=== PATIENT | female | born 1975 | race African-American/Black ===

== ENCOUNTER 2016-11-26 19:46 | Inpatient (IN) ==
[2016-11-26] MEDS ORDERED: ACETAMINOPHEN 500 MG TABLET PO STA (20:11)
[2016-11-26] MEDS ORDERED: SODIUM CHLORIDE 0.9% 500 ML IV STA (20:11)
[2016-11-26] MEDS ORDERED: CEFTAROLINE 600 MG in SODIUM CHLORIDE 0.9% 100 ML IV STA (20:11)
--- NOTE | 2016-11-26 20:17 | Emergency Department Note ---
Alonso Leon Brittany, am scribing for, and in the presence of, oJse Nichols MD 20:15. Simone Leon Charles R, MD, personally performed the services described in this documentation, ascribed by Melida Gupta in my presence, and it is both accurate and complete . Arrival - Arrival Chief Complaint: Extremity Problem Stated Complaint: sick ED Nursing Triage Note: pt to triage c/o left leg swelling , and pain. left leg swollen, painful to touch. reddness / warmth noted fron ankle to knee. pt was seen in june. Mode of Arrival: Ambulatory Limitations: No Limitations Source: Patient, RN Notes Reviewed - History of Present Illness HPI Narrative: Ms. Garcia is a 41 y/o black female presenting to the ED with c/o erythema, swelling, and pain to the LLE with an onset of 6 months. Patient reports that since June she has had intermittent episodes of erythema, swelling, and pain to the LLE. She notes that after an episode there will be a period of weeks before she has another episode. She reports that with each episode she will have a fever each day until the episode subsides. Patient was seen in June 2016 for this and was diagnosed with Cellulitis. On that same visit she was evaluated for possible DVT and was found to have none. She denies any history of other medical problems. She reports an episode of nausea/vomiting today and states that she is unsure if she may be . Patient has not had a menstrual period this month. Patient has no other complaint/pain. Onset (ago): month(s) Consistency: intermittent Severity: moderate Severity scale (1-10): 6 Quality: aching Allergies/Adverse Reactions: Allergies Allergy/AdvReac Type Severity Reaction Status Date / Time No Known Allergies Allergy Verified 11/26/16 19:53 Home Medications: Home Medications Medication Instructions Recorded Confirmed Type No Known Home Medications [No 11/26/16 11/26/16 History Known Home Medications] Review of System - Review of System 12 point system: reviewed and no additional remarkable complaints except as stated - Review of System Constitutional: Present: fever Eyes: Absent: vision change Head/Ears/Nose/Throat: Absent: nasal drainage, sore throat Respiratory: Absent: respiratory distress Cardiovascular: Absent: chest pain, palpitations Gastrointestinal: Present: nausea, vomiting. Absent: abdominal pain Genitourinary female: Absent: dysuria, frequency, urgency Musculoskeletal: Present: leg pain. Absent: arm pain, back pain, neck pain Skin: Present: as per HPI. Absent: rash Neurological: Absent: headache Psychiatric: Absent: anxiety, depression Hematological/Lymphatic: Absent: easy bleeding, easy bruising Medical,Surgical,& Family Hx - Surgical History Reproductive Surgeries: Surgical HX of;: Section (1994) - Family History Family History: Reports;: Family Diabetes, Family Heart Disease - Social History Smoking Status: Current every day smoker Frequency of Alcohol Use: None Type of Drug Use: None Exam Vital Signs: Vital Signs Temperature 102.1 F H 11/26/16 19:52 Pulse Rate 123 H 11/26/16 19:52 Respiratory Rate 20 11/26/16 19:52 Blood Pressure 142/80 11/26/16 19:52 O2 Sat by Pulse Oximetry 99 11/26/16 19:47 - General General appearance: alert, in no apparent distress - Head Head exam: Present: atraumatic, normocephalic, normal inspection - Eye Eye exam: Present: normal appearance, PERRL, EOMI - ENT ENT exam: Present: normal exam, normal oropharynx - Neck Neck exam: Present: normal inspection, full ROM, trachea midline - Chest Chest inspection: Present: normal inspection, symmetric chest wall rise - Respiratory Respiratory exam: Present: normal lung sounds bilaterally - Cardiovascular Cardiovascular exam: Present: normal rhythm, tachycardia, normal heart sounds. Absent: regular rate - Abdominal Exam Abdominal exam: Present: soft, normal bowel sounds - Extremities Exam Extremities exam: Present: full ROM, tenderness (tender to palpation posterior left thigh). Absent: normal inspection (beamingly erythematous LLE from the knee to then ankle with swelling hot to touch, good distal pulses) - Back Exam Back exam: Present: normal inspection - Neurological Exam Neurological exam: Present: alert, oriented X3, CN II-XII intact. Absent: motor sensory deficit - Psychiatric Psychiatric exam: Present: normal affect, normal mood - Skin Skin exam: Present: warm, dry, other (beamingly erythematous LLE from the knee to then ankle with swelling, hot to touch) Course - Consultations Consultation #1: Hospitalist will admit patient Time: 20:53 Results - Labs CBC & BMP: 11/26/16 19:58 11/26/16 19:58 Lab Results: I have reviewed the patients labs Labs: Laboratory Tests 11/26/16 19:58 WBC 24.4 H RBC 4.14 Hgb 11.0 L Hct 34.1 L MCV 82.4 L MCH 27 MCHC 32.3 RDW 16.3 Plt Count 350 MPV 10.4 Neut % (Auto) 89.5 H Lymph % (Auto) 3.2 L [place] % (Auto) 6.2 Eos % (Auto) 0.0 Baso % (Auto) 0.2 Neut # (Auto) 21.8 H Lymph # (Auto) 0.8 L [place] # (Auto) 1.5 H Eos # (Auto) 0.0 Baso # (Auto) 0.0 Immature Gran % 0.9 Nucleated RBC % 0.0 Immature Gran # 0.22 Nucleated RBCs # 0.00 Laboratory Tests 11/26/16 19:58 INR 1.0 PT Patient/Control Mix 10.7 - Diagnostic Findings Procedure: Chest x-ray: image reviewed by me (Negative), Ultrasound: image reviewed by me (No DVT left lower extremity) Critical Care Time Critical Care Time: Yes Total Critical Care Time: 60 Disposition Clinical Impression: Cellulitis, Lower extremity edema, Fever, Sepsis affecting skin, Leukocytosis Case discussed with: patient, patient's family Disposition: Still a Patient Condition: Guarded Time of Disposition: 20:59 Sepsis - Sepsis Classification of Sepsis: Sepsis - Physical Exam Respiratory exam: clear to auscultation bilaterally Cardiovascular exam: tachycardia
[2016-11-26 20:21] LABS: Basophils % 0.2 % (0.0-0.8); Hematocrit 34.1 VOL% (35.7-47.0); Immature Granulocytes % 0.9 %; Immature Granulocytes Absolute 0.22 #; Lymphocytes # 0.8 10*3/uL (1.4-4.0); Lymphocytes % 3.2 % (21.3-54.2); Mean Corpuscular HGB Conc 32.3 GM/DL (32-36); Mean Corpuscular Hemoglobin 27 PG (27-34); Mean Corpuscular Volume 82.4 FL (87-102); Mean Platelet Volume 10.4 FL (9.6-12.0); Monocytes # 1.5 10*3/uL (0.11-0.8); Monocytes % 6.2 % (1.7-12.7); Neutrophils # 21.8 10*3/uL (1.4-7.4); Neutrophils % 89.5 % (38.7-73.9); Platelet Count 350 T/CUMM (130-400); Red Blood Count 4.14 MC/CUMM (3.8-5.5); Red Cell Distribution Width 16.3 % (9.3-17.3); White Blood Count 24.4 T/CUMM (4-12)
[2016-11-26] MEDS ORDERED: ACETAMINOPHEN 500 MG TABLET ONE (20:24)
[2016-11-26] MEDS ORDERED: CEFTAROLINE 600 MG VIAL IV ONE (20:24)
[2016-11-26 20:30] LABS: PT Patient Result 10.7 SECS
[2016-11-26] MEDS ORDERED: SODIUM CHLORIDE 0.9% 1,000 ML IV STA (20:43)
[2016-11-26 20:46] LABS: Albumin 3.5 G/DL (3.4-5.0); Bilirubin,Total 0.5 MG/DL (0.2-1.0); Calcium 8.9 MG/DL (8.5-10.1); Osmolality,Calculated 272.8 MOS/KG (273-304); Potassium 4.2 MMOL/L (3.5-5.1); Total Protein 7.7 G/DL (6.4-8.3)
[2016-11-26 20:47] LABS: Band Neutrophils 3 % (0-10); Lymphocytes 2 % (20-55); Platelet Estimate Normal; Segmented Neutrophils 88 % (50-85); Total Cells Counted 100
[2016-11-26 20:56] LABS: Apearance,Urine CLEAR (Clear); Bilirubin,Urine Negative (Negative); Blood, Urine Negative (Negative); Glucose,Urine (UA) Negative (Negative); Ketones,Urine Negative (Negative); Mucus,Urine Occasional /LPF (Occasional); Nitrite,Urine Negative (Negative); Protein,Urine Negative; RBC,Urine <1 /HPF (0-4); Renal Epithelial Cells,Urine Occasional /HPF (<1); Squamous Epithelial Cell,Urine Occasional /HPF (0-10); Urine Color Yellow (Yellow); Urine Specific Gravity 1.016 (1.001-1.035); Urine Urobilinogen < 2.0 EU/DL (0.2-1.0); WBC,Urine 1 /HPF (0-6)
[2016-11-26] MEDS ORDERED: SODIUM CHLORIDE 0.9% 3,150 ML IV ONE (20:56)
--- NOTE | 2016-11-26 20:59 | XRay Report ---
Exam: XR chest 1V portable Indication: Shortness of breath fever Comparison study: None Findings: The heart, mediastinum, and bony structures are within normal limits. There is no focal consolidation, pneumothorax or pleural effusion identified. Impression: No acute cardiopulmonary process. PROCEDURE INTERPRETED AT [facility] DEPARTMENT OF RADIOLOGY Final Report Signed by: Luis Felipe Perez
--- NOTE | 2016-11-26 21:00 | Ultrasound Report ---
Indication: Swelling, fever Duplex scan of the left lower extremity veins Technique: Duplex scan of the left lower extremity veins using B-mode/grayscale imaging and Doppler spectral analysis and color flow Findings: Major venous structures of the left lower extremity demonstrate a normal course and caliber. There is no evidence of deep vein thrombosis. No abnormal intrinsic echogenic lesions are demonstrated in the scanned blood vessels. Veins demonstrate good compressibility with normal color flow study and spectral analysis. Impression: Unremarkable duplex imaging of the left lower extremity veins. No evidence of DVT PROCEDURE INTERPRETED AT [facility] DEPARTMENT OF RADIOLOGY Final Report Signed by: Luis Felipe Perez
[2016-11-26 21:19] LABS: PT Patient Result 10.7 SECS; Partial Thromboplastin Time 28.7 SECS (0-40)
--- NOTE | 2016-11-26 21:23 | Hospitalist History & Physical ---
<Jose Nichols Teresa - Last Filed: 11/26/16 21:28> History of Present Illness History of present illness: Ms. Garcia is a 41 year old female Home Medications Medication Instructions Recorded Confirmed Type No Known Home Medications [No 11/26/16 11/26/16 History Known Home Medications] Allergies Allergy/AdvReac Type Severity Reaction Status Date / Time No Known Allergies Allergy Verified 11/26/16 19:53 Exam - Constitutional Vitals: Period Temp Pulse Resp BP Sys/Portillo Pulse Ox Last 24 Hr 102.1 F-102.1 F 123-123 20-20 142-142/80-80 99 Results - Labs CBC & BMP: 11/26/16 19:58 11/26/16 19:58 <Tay Hernandez - Last Filed: 11/27/16 04:49> Assessment and Plan - Time spent with patient Time spent discussing smoking cessation with patient: 3 to 10 minutes (1) Sepsis due to cellulitis Status: Acute Current Visit: Yes (2) Intractable nausea and vomiting Status: Acute Assessment and plan: Plan: Admit for IV antibiotics, IV fluids, obtain blood cultures. Supportive care for pain, nausea. Current Visit: Yes History of Present Illness Chief complaint: Left lower extremity pain and swelling, fever History of present illness: Ms. Garcia is a 41 year old female who is here with left lower extremity pain and swelling along with fever up to 102 has been a problem over the last 2-3 days. She states she has had has occurred over problems with cellulitis of left lower extremity over the last 6 months. Her last flareup over the last 2 weeks. She took left over clindamycin from June without improvement and now remains febrile, along with nausea and vomiting. She describes her pain as achy and sometimes sharp, 8 out of 10 at worst. Exacerbated by ambulation, relieved with rest. Her symptoms are constant and severe. She has tachycardic , febrile, and tachypneic will be admitted for sepsis due to cellulitis of the left lower extremity. Dopplers in the ER were negative for DVT. Medical,Surgical,& Family Hx - Medical History Cardio: No history of: Hypertension Endocrine: No history of: Diabetes Mellitus (NIDDM) Respiratory: No history of: COPD Other: History of: Skin Problems (Recurrent left lower extremity cellulitis) - Surgical History Reproductive Surgeries: Surgical HX of;: Section (1994) - Family History Family History: Reports;: Family Diabetes, Family Heart Disease - Social History Smoking Status: Current every day smoker Have you smoked in the last 12 months: Yes Time spent discussing smoking cessation with patient: 3 to 10 minutes Frequency of Alcohol Use: None Type of Drug Use: None Marital Status: Unknown Functional capacity: independent ambulation Review of systems: A 12 point review of systems is negative except as specified in the HPI Exam - Constitutional Vitals: Period Temp Pulse Resp BP Sys/Portillo Pulse Ox Last 24 Hr 102.1 F-102.1 F 123-123 20-20 142-142/80-80 99 Exam: EXAM: CONSTITUTIONAL: Ill-appearing, NAD HEENT: NC, AT, OP benign, LUIS, EOMI CV: Tachycardic, regular no m/g/r RESP: clear B/L, no w/r/r GI: abd soft, NT, ND, +bowel sounds INTEGUMENTARY: no lesions or rash EXTREMITIES: 1+ pitting edema of the left lower extremity, erythema, warmth, pain with palpation of the distal left extremity, no open sores or wounds NEURO: no focal deficits PSYCH: unremarkable, A/O x3 Results - Labs CBC & BMP: 11/27/16 01:47 11/27/16 01:47 Lab Results: I have reviewed the past 24 hour labs - Diagnostic Findings Procedure: Chest x-ray: image reviewed by me, report reviewed by me, Ultrasound : image reviewed by me, report reviewed by me
[2016-11-26 21:26] LABS: Sedimentation Rate-Westergren 84 MM/HR (0-20)
[2016-11-26] MEDS ORDERED: BISACODYL 5 MG TABLET PO PRN (21:31)
[2016-11-26] MEDS ORDERED: ONDANSETRON 4 MG/2 ML VIAL IV PRN (21:31)
[2016-11-26] MEDS ORDERED: MORPHINE 2 MG/1 ML SYRINGE IV PRN (21:31)
[2016-11-26] MEDS ORDERED: traZODone 50 MG TABLET PO PRN (21:31)
[2016-11-26] MEDS ORDERED: ACETAMINOPHEN 325 MG TABLET PO PRN (21:31)
[2016-11-26] MEDS: SODIUM CHLORIDE 0.9% 1,000 ML IV SCH (23:04)
[2016-11-26] MEDS: ENOXAPARIN 40 MG/0.4 ML SYRINGE SUBCUT SCH (23:04)
[2016-11-26] MEDS: CLINDAMYCIN INJ 600 MG in PREMIX 1 EACH IV SCH (23:04)
[2016-11-27 02:26] LABS: Basophils # 0.1 10*3/uL (0.0-0.2); Basophils % 0.2 % (0.0-0.8); Hematocrit 30.8 VOL% (35.7-47.0); Immature Granulocytes % 1.2 %; Immature Granulocytes Absolute 0.36 #; Lymphocytes # 1.6 10*3/uL (1.4-4.0); Lymphocytes % 5.1 % (21.3-54.2); Mean Corpuscular HGB Conc 32.5 GM/DL (32-36); Mean Corpuscular Hemoglobin 27 PG (27-34); Mean Corpuscular Volume 82.4 FL (87-102); Mean Platelet Volume 10.3 FL (9.6-12.0); Monocytes # 1.4 10*3/uL (0.11-0.8); Monocytes % 4.6 % (1.7-12.7); Neutrophils # 27.7 10*3/uL (1.4-7.4); Neutrophils % 88.9 % (38.7-73.9); Platelet Count 314 T/CUMM (130-400); Red Blood Count 3.74 MC/CUMM (3.8-5.5); Red Cell Distribution Width 16.4 % (9.3-17.3); White Blood Count 31.2 T/CUMM (4-12)
[2016-11-27 03:02] LABS: Calcium 8.1 MG/DL (8.5-10.1); Osmolality,Calculated 279.3 MOS/KG (273-304); Potassium 3.6 MMOL/L (3.5-5.1)
[2016-11-27] MEDS: CLINDAMYCIN INJ 600 MG in PREMIX 1 EACH IV SCH ×3 (06:24→21:37)
[2016-11-27] MEDS: SODIUM CHLORIDE 0.9% 1,000 ML IV SCH (06:27)
[2016-11-27] MEDS: PANTOPRAZOLE 40 MG TABLET PO SCH (08:09)
[2016-11-27] MEDS: CEFTAROLINE 600 MG in SODIUM CHLORIDE 0.9% 100 ML IV SCH ×2 (08:09→20:35)
--- NOTE | 2016-11-27 09:04 | Hospitalist Progress Note ---
Assessment and Plan - Time spent with patient Time spent with patient: Greater than 30 minutes (1) Cellulitis Status: Acute Current Visit: Yes (2) Lower extremity edema Status: Acute Current Visit: Yes (3) Leukocytosis Status: Acute Current Visit: Yes (4) Sepsis due to cellulitis Status: Acute Assessment and plan: She is on appropriate antibiotics for her condition, will continue the same. Follow blood cultures. Keep lower extremity elevated while at rest. Pain controlled on [place] DVT prophylaxis Current Visit: Yes Hospitalist: Subjective Interval history: Young man admitted overnight for left lower extremity cellulitis and secondary sepsis. Leukocytosis worsening, however she has no fever today. Still complains of achy pain in the left lower extremity. Lower extremity Doppler is negative for DVT She is on ceftaroline which is appropriate for treatment of her cellulitis, will monitor progress. Exam - Constitutional Vitals: Period Temp Pulse Resp BP Sys/Portillo Pulse Ox Last 24 Hr 98.7 F-102.1 F 99-123 16-24 124-142/66-89 96-99 Exam: CONSTITUTIONAL: Ill-appearing, NAD HEENT: NC, AT, OP benign, LUIS, EOMI CV: Normal sinus rhythm, no longer tachycardic. Heart sounds 1 and 2 heard RESP: Good air entry bilaterally, no crackles or wheezes. GI: abd soft, NT, ND, +bowel sounds EXTREMITIES:edema of the left lower extremity, erythema, warmth, pain with palpation of the distal left extremity, no open sores or wounds NEURO: no focal deficits Results - Labs CBC & BMP: 11/27/16 01:47 11/27/16 01:47 Lab Results: I have reviewed the past 24 hour labs Quality Measures - Stroke Symptom Onset Unknown: No
[2016-11-27] MEDS: ENOXAPARIN 40 MG/0.4 ML SYRINGE SUBCUT SCH (21:51)
[2016-11-28] MEDS: CLINDAMYCIN INJ 600 MG in PREMIX 1 EACH IV SCH ×3 (05:35→21:28)
[2016-11-28] MEDS: CEFTAROLINE 600 MG in SODIUM CHLORIDE 0.9% 100 ML IV SCH ×2 (08:01→20:25)
[2016-11-28] MEDS: PANTOPRAZOLE 40 MG TABLET PO SCH (08:01)
--- NOTE | 2016-11-28 09:41 | Hospitalist Progress Note ---
Assessment and Plan - Time spent with patient Time spent with patient: Greater than 30 minutes (1) Cellulitis Status: Acute Current Visit: Yes (2) Lower extremity edema Status: Acute Current Visit: Yes (3) Leukocytosis Status: Acute Current Visit: Yes (4) Sepsis due to cellulitis Status: Acute Assessment and plan: She is on appropriate antibiotics for her condition, will continue the same. Follow final blood cultures. Keep lower extremity elevated while at rest. Advance her diet Pain controlled on [place] DVT prophylaxis Based on clinical improvement, she may be ready for discharge on oral antibiotics tomorrow. Current Visit: Yes Hospitalist: Subjective Interval history: Admitted for left lower extremity cellulitis, pain and swelling have continued to improve. No more fever. Preliminary blood cultures are negative. Exam - Constitutional Vitals: Period Temp Pulse Resp BP Sys/Portillo Pulse Ox Last 24 Hr 98.4 F-99.9 F 84-97 20-24 125-143/68-78 96-100 Exam: CONSTITUTIONAL: Ill-appearing, NAD HEENT: NC, AT, OP benign, LUIS, EOMI CV: Normal sinus rhythm, no longer tachycardic. Heart sounds 1 and 2 heard RESP: Good air entry bilaterally, no crackles or wheezes. GI: abd soft, NT, ND, +bowel sounds EXTREMITIES:edema of the left lower extremity, erythema, warmth, pain with palpation of the distal left extremity, no open sores or wounds NEURO: no focal deficits Results - Labs CBC & BMP: 11/27/16 01:47 11/27/16 01:47 Lab Results: I have reviewed the past 24 hour labs Quality Measures - Stroke Symptom Onset Unknown: No
[2016-11-28] MEDS: ENOXAPARIN 40 MG/0.4 ML SYRINGE SUBCUT SCH (21:28)
[2016-11-29] MEDS: CLINDAMYCIN INJ 600 MG in PREMIX 1 EACH IV SCH ×2 (05:55→13:22)
--- NOTE | 2016-11-29 09:24 | Discharge Summary ---
<Oralia Graciada - Last Filed: 11/29/16 09:17> Hospital Course - Hospital Course Hospital Course: This is a 41-year-old female that presented to the ED at [facility] on November 27, 2016 for the evaluation of left lower extremity pain and edema. The patient has a history of recurrent left lower extremity cellulitis and a surgical history of section in 1994. At the time of presentation, the patient reported an onset of the above symptoms 2-3 days prior to presentation to the ED. She reported that she has had issues with chronic cellulitis affecting the left extremity for the last 6 months. She reported being febrile with temperatures as high as 102. She was last seen for this problem in June of this year and was given clindamycin, however her symptoms did not improve. In addition, the patient was also noted to be tachycardic and be experiencing nausea and vomiting. Labs were obtained at the time of presentation, which reported leukocytosis with a white blood cell count noted at 24.4, hemoglobin at 11.0, hematocrit at 34.1, and platelet count at 350. Mr. panels were obtained which were essentially benign. ESR was elevated at 84. Lactate dehydrogenase was noted at 276, C-reactive protein at 1.54, and lactic acid at 2.3. Urinalysis was obtained which was essentially benign. Chest x-ray was obtained which was negative for any acute cardiopulmonary processes. Ultrasound venous Doppler scan of the left lower extremity was negative for the presence of deep vein thrombosis. The patient was subsequently admitted to the hospitalist services for continuation of care. The sepsis bundle was initiated at that time. Empiric antibiotics, intravenous fluid replacement, and VTE prophylaxis was started. The patient's condition has improved. She has not experienced any significant overnight events. Today, we feel that the patient is appropriate for discharge to follow-up with her primary care physician as directed. The patient will continue antibiotic therapy at the time of discharge. Spoke in great detail with patient regarding the importance of completing the entire antibiotic regimen. The patient acknowledges an understanding of the importance to prevent the reoccurrence of this condition. Discharge Plan - Discharge Data Disposition: Disch To Home/Self Care - Discharge Medications New Pantoprazole Tab [Protonix Tab] 40 mg PO DAILY #30 tablet Clindamycin Cap [Cleocin Cap] 300 mg PO Q6HR #40 capsule Levofloxacin Tab [Levaquin Tab] 500 mg PO DAILY #10 tablet - Follow Up or Referral - Forms/Instructions Exam - Constitutional Vitals: Period Temp Pulse Resp BP Sys/Portillo Pulse Ox Last 24 Hr 97.2 F-98.9 F 72-84 16-22 127-147/54-93 97-100 Discharge Results Procedures and tests throughout hospitalization: Pending Orders 11/26/16 20:40 Blood Culture Stat Urine Culture Stat 11/26/16 20:56 Urinalysis Stat 11/26/16 23:07 Blood Culture Stat Labs on day of discharge: Preliminary micro results at discharge 11/26/16 20:40 Urine Culture - Preliminary Urine,Catheterized No Growth at 24 hours. 11/26/16 23:07 Blood Culture - Preliminary Blood No growth at 1 day 11/26/16 23:07 Blood Culture - Preliminary Blood No growth at 1 day 11/26/16 20:40 Blood Culture - Preliminary Blood No growth at 1 day 11/26/16 19:58 Blood Culture - Preliminary Blood No growth at 1 day DS: Provider Date of admission: 11/26/16 21:32 Primary care physician: . No PCP Attending physician on admission: Tay Hernandez DO Discharging clinician: Syed Gracia CNP <Adalberto Cervantes Jr. - Last Filed: 11/29/16 14:01> Diagnosis - Discharge Diagnosis (1) Cellulitis Status: Acute (2) Sepsis due to cellulitis Status: Acute Discharge Plan - Discharge Data Condition at Discharge: Stable Discharge Diet: advance to your usual diet - Forms/Instructions Additional Discharge Instructions: Follow-up primary provider in 1 week. Patient returned to work in 1 week. Exam - ENT ENT exam: Present: normal exam - Neck Neck exam: Present: normal inspection - Respiratory Respiratory exam: Present: clear to auscultation bilaterally - Cardiovascular Cardiovascular exam: Present: regular rate and rhythm - GI/Abdominal GI/Abdominal exam: Present: normal bowel sounds - Back Exam Back exam: Present: normal inspection - Psychiatric Psychiatric exam: Present: normal affect, normal mood
[2016-11-29] MEDS: CEFTAROLINE 600 MG in SODIUM CHLORIDE 0.9% 100 ML IV SCH (11:28)
[2016-11-29] MEDS: PANTOPRAZOLE 40 MG TABLET PO SCH (11:29)
[2016-11-29 11:52] VITALS: BP 146/79
== END 2016-11-29 15:25 | disposition home or self-care (01) | DRG 872 ==
LOC: N.ED 19:46 → N.EDINP 21:31 → SUATTDRO 21:32 → N.2E 22:30
PROVIDERS: ADMIT Internal Medicine; ATTEND Internal Medicine Nephrology